=== PATIENT | female | born 1970 | race Caucasian/White ===

== ENCOUNTER 2020-02-27 01:53 | Emergency (ER) | payer MEDICAID ==
[~2020-02-27] VITALS: Ht 160 cm; Wt 68.0 kg
[2020-02-27 01:57] VITALS: BP 161/100
[2020-02-27] MEDS ORDERED: LIDOCAINE 1%/EPI 1:100,000 10 ML VIAL IJ ONE (04:15)
[2020-02-27] MEDS ORDERED: IBUPROFEN 600MG TABLET PO ONE (04:15)
[2020-02-27] MEDS ORDERED: TETANUS, DIPHTHERIA, PERTUSSIS VAC/PF 0.5ML (>7YR OLD) IM ONE (04:15)
[2020-02-27] MEDS ORDERED: LIDOCAINE HCL/EPINEPHRINE 1%-EPI 1:100,000 20 ML VIAL INFIL NR (04:15)
[2020-02-27] MEDS ORDERED: BACITRACIN ZINC OINT UDPKT TOP ONE (04:15)
== END 2020-02-27 05:57 | disposition home or self-care (01) ==
LOC: ER 01:53
DX: S81.011A Laceration without foreign body, right knee, initial encounter (principal); X58.XXXA Exposure to other specified factors, initial encounter; Y93.89 Activity, other specified; Y92.89 Other specified places as the place of occurrence of the external cause; Y99.8 Other external cause status
CPT/HCPCS: 12002; 73560; 81025; 90471; 90715; 99283; J3490; L1830

== ENCOUNTER 2020-03-04 14:19 | Emergency (ER) | payer MEDICAID ==
[~2020-03-04] VITALS: Ht 165.1 cm; Wt 90.0 kg
[2020-03-04 14:30] VITALS: BP 118/70
== END 2020-03-04 16:13 | disposition home or self-care (01) ==
LOC: ER 14:19
DX: Z48.02 Encounter for removal of sutures (principal); R03.0 Elevated blood-pressure reading, without diagnosis of hypertension
CPT/HCPCS: 99281